=== PATIENT | male | born 1990 | race Two or more races ===

== ENCOUNTER 2016-07-11 19:46 | Emergency (ER) | payer SELFPAY ==
[~2016-07-11] VITALS: Ht 182.9 cm; Wt 86.2 kg
[2016-07-11 19:59] VITALS: BP 156/85
[2016-07-11] MEDS ORDERED: LORAZEPAM 1 MG TABLET ONE (20:43)
[2016-07-11] MEDS ORDERED: LORAZEPAM 1 MG TABLET PO ONE (21:00)
== END 2016-07-11 21:19 | disposition home or self-care (01) ==
LOC: ER 19:49
DX: F41.9 Anxiety disorder, unspecified (principal); F41.0 Panic disorder [episodic paroxysmal anxiety]; Z59.0 Homelessness
CPT/HCPCS: 99284; A4606; Z7610

== ENCOUNTER 2016-10-17 12:48 | Emergency (ER) | payer SELFPAY ==
[~2016-10-17] VITALS: Ht 188 cm; Wt 86.2 kg
[2016-10-17 12:57] VITALS: BP 125/81
[2016-10-17] MEDS ORDERED: CEPHALEXIN MONOHYDRATE 500 MG CAPSULE PO ONE ×2 (13:16→13:30)
[2016-10-17] MEDS ORDERED: SULFAMETH/TRIMETH 800/160 MG 1 UDTAB TABLET PO ONE ×2 (13:16→13:30)
== END 2016-10-17 13:25 | disposition home or self-care (01) ==
LOC: ER 12:49
DX: L03.116 Cellulitis of left lower limb (principal); I10 Essential (primary) hypertension; Y92.89 Other specified places as the place of occurrence of the external cause; Z59.0 Homelessness; Y04.0XXA Assault by unarmed brawl or fight, initial encounter; F10.20 Alcohol dependence, uncomplicated; Y93.89 Activity, other specified; Y99.8 Other external cause status
CPT/HCPCS: A4606; Z7610